=== PATIENT | female | born 1985 | race Caucasian/White ===

== ENCOUNTER 2023-06-11 10:47 | Emergency (ER) | payer BC, SELFPAY ==
[2023-06-11 10:50] VITALS: BP 150/98; PULSE 111; RESP 16; TEMP 36.9; O2SAT 100; BMI 28.3
--- NOTE | 2023-06-11 11:05 | CRLHL7_ITS ---
For Patients: As a result of the Century Cures Act, medical imaging exams and procedure reports are released immediately into your electronic medical record. You may view this report before your referring provider. If you have questions, please contact your health care provider. Indication: Right foot pain. Technique: Right foot 3 views. Comparison: None. Findings: Bones: Alignment is normal. No fractures or bone lesions. Joint spaces: No significant degenerative changes. Soft tissues: Unremarkable. Impression: No findings to explain pain. Dictated by Macario Hamilton MD @ 06/11/2023 12:17:38 PM (Electronically Signed)
--- NOTE | 2023-06-11 11:34 | ED_ITS ---
HPI - Extremity Injury (Lower) General Date Seen: 06/11/23 Chief Complaint: Extremity Pain/Injury, Lower Stated Complaint: R foot pain Time Seen by Provider: 06/11/23 10:50 Source: patient Mode of arrival: ambulatory Limitations: no limitations History of Present Illness HPI Narrative: Patient is a 37-year-old female who presents here with friend, she complains of right foot pain, the came on overnight. She describes it in her lateral part to medial part of her mid forefoot. There is no history of injury. She went to bed feeling okay, she does not tell me about any swelling, redness, history of trauma, she has no previous past history of gout. She does however have a past history of ankle reconstruction on the right ankle. She is not taking any medications for the pain, says it hurts so much to bear weight, that she can not really bear weight. But laying quietly she does not really have a lot of discomfort. She has not started any new medications, no fevers, chills, no h istory of any systemic type symptoms. Denies any back pain associated with this, and no radicular pain pattern. She has no personal history of any peripheral arterial disease or sickle cell anemia. She did try some treatment with ice. Related Data Home Medications Medication Instructions Recorded Confirmed Adderall 06/11/23 Allergies Allergy/AdvReac Type Severity Reaction Status Date / Time Sulfa (Sulfonamide Allergy Severe Verified 06/11/23 10:56 Antibiotics) metronidazole Allergy Intermediate Verified 06/11/23 10:56 benzethonium chloride Allergy Unknown Verified 06/11/23 10:56 Review of Systems Status of ROS: Reports: 10 or more systems reviewed and unremarkable except as noted in History and below Exam Narrative: Exam Narrative: On examination she is seen in room 2. She is in no apparent distress, her right foot shows good DP and posterior tibial pulses it is warm. There is no redness, swelling noted of her foot at all, she can bring it to neutral position, she complains of pain in the mid forefoot, but also little bit over the instep for the insertion of the plantar fascia of would be also. No evidence of any wounds. No rashes. Scars from previous right ankle surgery are noted and are well healed. Her knee and hip have full range of motion. Const: Vital Signs, click to edit/add: Vital Signs - 24 hr 06/11/23 10:50 Temperature 98.4 F Pulse Rate [Pulse Oximeter] 111 H Respiratory Rate 16 Blood Pressure [Ri ght Upper Arm] 150/98 H Pulse Oximetry 100 Oxygen Delivery Me thod Room Air Documenting provider has reviewed patient's vital signs: yes Course Vital Signs Vital signs: Initial Vital Signs Temperature 98.4 F 06/11/23 10:50 Temperature Source Temporal Artery Scan 06/11/23 10:50 Pulse Rate 111 H 06/11/23 10:50 Respiratory Rate 16 06/11/23 10:50 Blood Pressure 150/98 H 06/11/23 10:50 Blood Pressure Mean 115 H 06/11/23 10:50 Blood Pressure Position Supine 06/11/23 10:50 Pulse Oximetry 100 06/11/23 10:50 Oxygen Delivery Method Room Air 06/11/23 10:50 Vital Signs Temperature 98.4 F 06/11/23 10:50 Pulse Rate 111 H 06/11/23 10:50 Respiratory Rate 16 06/11/23 10:50 Blood Pressure 150/98 H 06/11/23 10:50 Pulse Oximetry 100 06/11/23 10:50 Oxygen Delivery Method Room Air 06/11/23 10:50 Temperature 98.4 F 06/11/23 10:50 Pulse Rate 111 H 06/11/23 10:50 Respiratory Rate 16 06/11/23 10:50 Blood Pressure 150/98 H 06/11/23 10:50 Pulse Oximetry 100 06/11/23 10:50 Oxygen Delivery Method Room Air 06/11/23 10:50 MDM - Extremity Injury (Lower) MDM Narrative Medical decision making narrative: Differential diagnosis here for acute pain in the foot would be trauma, dislocation fracture, avascular necrosis. Infection such as cellulitis. Peripheral arterial disease with occlusion, gouty arthropathy. Or radicular pain pattern. Given her examination, and findings on x-ray, I think the most likely here would be gouty arthropathy. Ibuprofen will be suggested along with Toradol. I explained to her I will call her if the x-ray show any findings. Medical Records Attestation: I reviewed the patient's medical records. Imaging Data Foot x-ray: Attestation: I have reviewed the pertinent imaging results. My impression: I reviewed the x-rays of the foot which showed no evidence of any significant bony abnormality, no swelling no effusion. I am awaiting radiology read. Discharge Plan Discharge Clinical Impression: Acute foot pain Patient Disposition: Home w/ Parent or Adult Condition: Stable Instructions: Arthralgia (ED) Additional Instructions: Home rest use of crutches, ibuprofen 800 mg p.o. t.i.d.. Ice. Follow-up, I will call you if the x-ray show anything other than normal. I do not think there is any evidence of infection, I think the highest likelihood here of may be gout or some other crystal arthropathy. Activity Level: Toe Touch Wt Bearing Prescriptions: No Action Adderall Follow Up/Referrals: Provider,Not a Local [Primary Care Provider] - Stand Alone Forms: [employer] Info Instructions
[2023-06-11] MEDS: KETOROLAC 30 MG/ML inj IM (11:37)
== END 2023-06-11 11:57 | disposition home or self-care (01) ==
PROVIDERS: Emergency Provider Family Medicine
DX: M79.671 Pain in right foot (principal)
CPT/HCPCS: 73630; 96372; 99283; 99284; J1885

== ENCOUNTER 2023-06-28 17:23 | Emergency (ER) | payer BC, SELFPAY ==
[2023-06-28 17:44] VITALS: BP 156/106; PULSE 90; RESP 20; TEMP 36.7; O2SAT 97
--- NOTE | 2023-06-28 18:51 | ED_ITS ---
HPI - General Adult General Chief complaint: Post Op Complication Stated complaint: Lap band adjustment 06/22-bruising and lump Time Seen by Provider: 06/28/23 18:20 History of Present Illness HPI narrative: This patient is a 37-year-old female who comes in with concern about bruising on her abdomen. She has had a lap band procedure and a port was accessed in this area about 5 or 6 days ago. She states that she stood up with the needle yet in the port and when it was removed it seemed to be a bit more difficult. She now has developed some bruising in feels a little lump in this area that is most likely the port in her abdomen. She called her surgeon who was unable to see her and she was instructed to come into the emergency department for evaluation. She arrives here with normal vital signs. She is in no acute distress. Related Data Home Medications Medication Instructions Recorded Confirmed Adderall See Rx Instructions .Route .COMPLEX 06/11/23 06/28/23 Allergies Allergy/AdvReac Type Severity Reaction Status Date / Time Sulfa (Sulfonamide Allergy Severe Verified 06/28/23 17:50 Antibiotics) metronidazole Allergy Intermediate Verified 06/28/23 17:50 benzethonium chloride Allergy Unknown Verified 06/28/23 17:50 Review of Systems Status of ROS: Reports: 10 or more systems reviewed and unremarkable except as noted in History and below Narrative: Constitutional: No fevers, no weight gain or loss. Eyes: No discharge. No vision changes. HENT: No congestion, no sore throat, no ear pain. Cardiovascular: No chest pain, no palpitations. Respiratory: No shortness of breath, no wheezes, no cough. Gastrointestinal: No vomiting, no diarrhea. Area of bruising in her mid abdomen with tenderness in the same area. Genitourinary: No dysuria, no hematuria. Musculoskeletal: Normal range of motion. Skin: No rashes, no pruritis. Neurological: No dizziness, weakness, sensory change, speech change. Endo/Heme/Allergies: No bruising or bleeding. No polydipsia. Pysch: no suicidality, no anxiety, no insomnia. All other systems reviewed and are negative. Exam Narrative: Exam Narrative: Constitutional: Well-developed, well-nourished, no acute distress. HEENT: Normocephalic, atraumatic. Neck: Normal range of motion. Nontender. Supple. Heart: Regular. No murmurs. Normal rate. Intact distal pulses. Lungs: Clear to auscultation. No chest discomfort. No wheezes, rhonchi, or rales. Abdomen: Normal bowel sounds. No rebound tenderness. Area of bruising in the mid abdomen measuring about 6 cm in diameter at the place where she has a port. Genitalia: Deferred. Back: No midline tenderness. Normal range of motion. Extremities: Normal range of motion. No injury. Skin: Intact. No rash. Warm. No erythema or pallor. Neurologic: No altered sensation. No weakness. Alert and oriented. Psychiatric: No suicidality. No anxiety or depression. No insomnia. Nursing notes and vitals signs are reviewed. Const: Vital Signs, click to edit/add: Vital Signs - 24 hr 06/28/23 17:44 Temperature 98.0 F Pulse Rate [Pulse Oximeter] 90 Respiratory Rate 20 Blood Pressure [Ri ght Upper Arm] 156/106 H Pulse Oximetry 97 Oxygen Delivery Me thod Room Air Course Vital Signs Vital signs: Initial Vital Signs Temperature 98.0 F 06/28/23 17:44 Temperature Source Temporal Artery Scan 06/28/23 17:44 Pulse Rate 90 06/28/23 17:44 Pulse Rhythm Regular 06/28/23 17:44 Respiratory Rate 20 06/28/23 17:44 Blood Pressure 156/106 H 06/28/23 17:44 Blood Pressure Mean 122 H 06/28/23 17:44 Blood Pressure Position Sitting 06/28/23 17:44 Pulse Oximetry 97 06/28/23 17:44 Oxygen Delivery Method Room Air 06/28/23 17:44 Vital Signs Temperature 98.0 F 06/28/23 17:44 Pulse Rate 90 06/28/23 17:44 Respiratory Rate 20 06/28/23 17:44 Blood Pressure 156/106 H 06/28/23 17:44 Pulse Oximetry 97 06/28/23 17:44 Oxygen Delivery Method Room Air 06/28/23 17:44 Temperature 98.0 F 06/28/23 17:44 Pulse Rate 90 06/28/23 17:44 Respiratory Rate 20 06/28/23 17:44 Blood Pressure 156/106 H 06/28/23 17:44 Pulse Oximetry 97 06/28/23 17:44 Oxygen Delivery Method Room Air 06/28/23 17:44 Medical Decision Making [facility] Narrative Medical decision making narrative: This patient is here simply to check out a area of bruising on her abdomen. She recently had a port accessed and now there is some bruising and tenderness in this area. Her bowel sounds are normal and she does not have tenderness when pressing elsewhere in her abdomen. She does not have rebound tenderness. Most likely this is some ecchymosis related to the recent port access. I did discuss lab and imaging options with the patient which she declined in a process of shared decision making. She states that she just wanted somebody to look at this to reassure her that there is nothing bad happening. Discharge Plan Discharge Clinical Impression: Abdominal pain Patient Disposition: Home, Self-Care Condition: Unchanged Additional Instructions: Continue current plans. Use [id number] medicines as needed and directed. Follow up with MD return if worsening. Prescriptions: No Action Adderall See Rx Instructions .ROUTE .COMPLEX Rx Instructions: 60 mg daily Follow Up/Referrals: Provider,Not a Local [Primary Care Provider] - Stand Alone Forms: [employer] Info Instructions
--- NOTE | 2023-06-28 19:02 | ED.NURSE ---
Patient left prior to receiving discharge paperwork. No IV in place upon leaving. Dr. Rendon notified.
== END 2023-06-28 19:00 | disposition home or self-care (01) ==
LOC: ED 18:58
PROVIDERS: Emergency Provider Emergency Medicine Emergency Medical Services
DX: R10.9 Unspecified abdominal pain (principal); R23.8 Other skin changes
CPT/HCPCS: 99282; 99284